=== PATIENT | male | born 1950 | race African-American/Black ===

== ENCOUNTER 2023-10-28 18:56 | Emergency (ER) | payer MEDICARE ==
[2023-10-28] MEDS ORDERED: Mag-Al Plus 1200/1200/120 MG (30 mL) UDCUP ONE (20:51)
[2023-10-28] MEDS ORDERED: cloNIDine 0.1 MG TAB ONE (20:55)
[2023-10-28] MEDS ORDERED: Acetaminophen 500 MG TAB ONE (21:49)
== END 2023-10-28 22:37 | disposition home or self-care (01) ==
LOC: CSHERS 18:56
DX: K40.90 Unilateral inguinal hernia, without obstruction or gangrene, not specified as recurrent (principal); R03.0 Elevated blood-pressure reading, without diagnosis of hypertension
CPT/HCPCS: 99283